=== PATIENT | male | born 1980 | race Two or more races ===

== ENCOUNTER 2016-09-30 11:22 | Emergency (ER) | payer SELFPAY ==
[2016-09-30] MEDS ORDERED: NO HOME MEDICATION XX (11:35)
== END 2016-09-30 12:55 ==
LOC: EDMED 11:22
PROC: 0HQFXZZ Repair Right Hand Skin, External Approach (ICD-10-PCS; principal; 2016-09-30)
DX: S61.411A Laceration without foreign body of right hand, initial encounter (principal); W45.8XXA Other foreign body or object entering through skin, initial encounter; Y93.89 Activity, other specified; Y92.019 Unspecified place in single-family (private) house as the place of occurrence of the external cause; Y99.8 Other external cause status